=== PATIENT | female | born 2000 | race African-American/Black ===

== ENCOUNTER 2023-10-17 07:44 | Emergency (ER) | payer OTHER ==
[~2023-10-17] VITALS: Ht 157.5 cm; Wt 79.6 kg
[2023-10-17] MEDS: DOXYCYCLINE HYCLATE 100MG TABLET PO ONE (12:28)
[2023-10-17] MEDS: IBUPROFEN 600MG TAB PO ONE (12:28)
[2023-10-17] MEDS: ACETAMINOPH W/CODEINE #3 TAB UD PO ONE (12:29)
[2023-10-17] MEDS ORDERED: DOXY-323 PO (13:26)
[2023-10-17] MEDS ORDERED: NAPR-837 PO (13:26)
[2023-10-17 13:47] VITALS: BP 126/78; TEMP 97.6; O2SAT 100
== END 2023-10-17 13:46 | disposition home or self-care (01) ==
LOC: M ED 07:44
DX: L73.2 Hidradenitis suppurativa (principal)

== ENCOUNTER → 2024-05-21 | Outpatient (REF) | payer OTHER ==
[~2024-05-21] MED LIST: DOXY-441 PO; NAPR-837 PO
== END ==
LOC: M SFHCWOUN 16:35
PROVIDERS: ATTEND Physician Assistant
DX: L73.2 Hidradenitis suppurativa (principal); S41.102A Unspecified open wound of left upper arm, initial encounter